=== PATIENT | female | born 1990 | race Caucasian/White ===

== ENCOUNTER 2023-10-26 14:08 | Emergency (ER) | payer BC, SELFPAY ==
[2023-10-26 14:13] VITALS: BP 128/76; PULSE 104; RESP 16; TEMP 37.1; O2SAT 98; BMI 39.1
--- NOTE | 2023-10-26 14:22 | DI.US.S_ITS ---
PROCEDURE: US PELVIC COMPLETE INDICATIONS: 6 weeks ega and bleeding TECHNIQUE: Real-time scanning was performed of the pelvic organs, with image documentation. Additional endovaginal scanning was necessary due to incomplete visualization of the adnexal and endometrial structures by transabdominal scanning. COMPARISON: None. FINDINGS: Uterus: Uterus is anteverted and normal in size at 9.0 x 7.0 x 5.4 cm. The myometrium is homogeneous. Heterogeneous echogenic material is seen throughout the endometrial canal without internal vascularity identified. No gestational sac is seen. Ovaries: The right ovary measures 3.3 x 2.6 x 2.8 cm, with a calculated ovarian volume of 12.6 cc. Simple 2.1 cm right ovarian cyst. The left ovary measures 3.8 x 2.7 x 2.4 cm, with a calculated ovarian volume of 12.9 cc. A simple cyst is seen in the left adnexa measuring 1.5 cm. Other: No pathologic free abdominal or pelvic fluid. IMPRESSION: of unknown location. No intrauterine or ectopic identified. Echogenic material within the endometrial canal without internal vascularity likely represents blood products although retained products of conception or gestational trophoblastic disease are not entirely excluded and clinical correlation and follow-up are recommended. Approved by: Bordie Whittaker M.D. on 10/26/2023 at 16:30
--- NOTE | 2023-10-26 14:45 | ED.GENADULT ---
HPI - General Adult General Chief complaint: Vaginal Bleeding Stated complaint: sent by OB, 6 weeks, thinks is having miscarriage Time Seen by Provider: 10/26/23 14:36 Source: patient Mode of arrival: Family Vehicle History of Present Illness HPI narrative: Patient is a 33-year-old at approximately 6 weeks EGA based on last menstrual cycle who is here for evaluation of vaginal bleeding that initially started as dark bleeding last evening and progressed now to bright red blood and lower abdominal cramping. No fevers. No trauma. No OB visits up to this point. Related Data Previous Rx's Medication Instructions Recorded nitrofurantoin 100 mg PO Q12H 5 days #10 caps 10/26/23 monohydrate/macrocrystals 100 mg capsule (Macrobid) Allergies Allergy/AdvReac Type Severity Reaction Status Date / Time No Known Drug Allergies Allergy Verified 10/26/23 16:18 Review of Systems Review of Systems Narrative: See HPI Exam Initial Vital Signs Initial Vital Signs: Vital Signs Temperature 98.7 F 10/26/23 14:13 Pulse Rate 104 H 10/26/23 14:13 Respiratory Rate 16 10/26/23 14:13 Blood Pressure 128/76 10/26/23 14:13 Pulse Oximetry 98 10/26/23 14:13 Oxygen Delivery Method Room Air 10/26/23 14:13 Const General: cooperative, comfortable and No ill appearing HENMT Head: normal to inspection and normocephalic Resp Effort & Inspection: normal respiratory effort Cardio Rate: regular rate GI Inspection: non-distended Skin General: no rashes or lesions noted Course Orders Ordered: ED Orders 10/26/23 14:22 US pelvic complete Stat 10/26/23 15:03 ABO RH Type Stat Basic Metabolic Panel Stat Complete Blood Count AUTO DIFF Stat HCG Quantitative /Beta subunit Stat 10/26/23 15:20 Test Urine Stat UA dip [Urinalysis Screen (Dip Only)] Stat Urine Culture Stat Urine Microscopic Stat Discontinued Medications Nitrofurantoin Macrocrystals (Nitrofurantoin Er 100 Mg Capsule) 100 mg PO NOW ONE Stop: 10/26/23 16:03 Last Admin: 10/26/23 16:17 Dose: 100 mg Documented By: DEVYN Rho Immune Globulin (Rho(D) Immune Globulin 1,500 Unit Syringe) 1,500 unit IM NOW ONE Stop: 10/26/23 16:03 Last Admin: 10/26/23 16:23 Dose: 1,500 unit Documented By: DEVYN Vital Signs Vital signs: Vital Signs - 8 hr 10/26/23 14:13 10/26/23 15:09 10/26/23 15:10 Temperature 98.7 F Pulse Rate 104 H 96 H 97 H Respiratory Rate 16 Blood Pressure 128/76 Pulse Oximetry 98 99 100 Oxygen Delivery Method Room Air Room Air 10/26/23 15:10 Temperature Pulse Rate Respiratory Rate Blood Pressure 130/68 Pulse Oximetry Oxygen Delivery Method Medical Decision Making Lab Data Lab results reviewed: Yes I reviewed the patient's lab results. 10/26/23 15:03 10/26/23 15:03 Labs: Lab Results 10/26/23 10/26/23 Range/Units 15:03 15:20 WBC 13.1 H (4.5-11.0) X10^3/uL RBC 4.86 (4.0-5.2) X10^6/uL Hgb 14.4 (12.0-16.0) g/dL Hct 42.4 (36-46) % MCV 87.1 (80-100) fL MCH 29.6 (26-34) PG MCHC 34.0 (30-36) % RDW 14.1 (11.6-14.8) % Plt Count 285 (150-400) X10^3/uL Neut % (Auto) 75.1 H (50-75) % Lymph % (Auto) 18.2 L (25-40) % [place] % (Auto) 5.3 (3-14) % Eos % (Auto) 1.0 L (2-4) % Baso % (Auto) 0.4 (0-2) % Neut # (Auto) 9900 H (0783-6918) /uL Lymph # (Auto) 2400 (5632-2568) /uL [place] # (Auto) 700 (0-900) /uL Eos # (Auto) 100 (0-450) /uL Baso # (Auto) 100 (0-100) /uL Sodium 139 (137-145) mmol/L Potassium 3.6 (3.4-5.1) mmol/L Chloride 104 (98-107) mmol/L Carbon Dioxide 25 (22-32) mmol/L BUN 12 (7-17) mg/dL Creatinine 0.83 (0.52-1.04) mg/dL Estimated GFR > 60 (>60) mL/min BUN/Creatinine Ratio 14.5 (6-22) Glucose 119 H (70-100) mg/dL Calcium 9.2 (8.4-10.2) mg/dL HCG, Quant 2307.5 mIU/mL Urine Color Red Urine Appearance Cloudy Urine pH 5.5 (4.5-8.0) Ur Specific [place] <=1.005 (1.000-1.035) Urine Protein 2+ H (Negative) Urine Glucose (UA) Negative (Negative) g/dL Urine Ketones Negative (NEGATIVE) Urine Occult Blood 3+ H (Negative) Urine Nitrate Positive H (Negative) Urine Bilirubin Negative (NEGATIVE) Urine Urobilinogen 0.2 (0.2) E.U./dL Ur Leukocyte Esterase Negative (NEGATIVE) Urine RBC >100/hpf H (0-5/HPF) Urine WBC 0-1/hpf (0-5/HPF) Ur Squamous Epith Cells 0-1 /hpf (0-5/HPF) Urine Bacteria Moderate (10-30) H (None) Ur Culture Indicated? Specimen cultured Vol Urine Centrifuged 10ml (spun) Urine Test Positive H (Negative) Blood Type O Negative Imaging Data US - OB: Radiologist's Impression: PROCEDURE: US PELVIC COMPLETE INDICATIONS: 6 weeks ega and bleeding TECHNIQUE: Real-time scanning was performed of the pelvic organs, with image documentation. Additional endovaginal scanning was necessary due to incomplete visualization of the adnexal and endometrial structures by transabdominal scanning. COMPARISON: None. FINDINGS: Uterus: Uterus is anteverted and normal in size at 9.0 x 7.0 x 5.4 cm. The myometrium is homogeneous. Heterogeneous echogenic material is seen throughout the endometrial canal without internal vascularity identified. No gestational sac is seen. Ovaries: The right ovary measures 3.3 x 2.6 x 2.8 cm, with a calculated ovarian volume of 12.6 cc. Simple 2.1 cm right ovarian cyst. The left ovary measures 3.8 x 2.7 x 2.4 cm, with a calculated ovarian volume of 12.9 cc. A simple cyst is seen in the left adnexa measuring 1.5 cm. Other: No pathologic free abdominal or pelvic fluid. IMPRESSION: of unknown location. No intrauterine or ectopic identified. Echogenic material within the endometrial canal without internal vascularity likely represents blood products although retained products of conception or gestational trophoblastic disease are not entirely excluded and clinical correlation and follow-up are recommended. MDM Narrative Medical decision making narrative: Patient does have bacteria in her urine in his nitrite positive. She was no specific UTI like symptoms however given her status we will treat her with antibiotics. First dose given here in the emergency department and a prescription for the remainder of the course was sent to the pharmacy of her choice. She was Rh negative. She did receive RhoGAM after her 1st . She was given a dose of RhoGAM here in the ER. Beta hCG is 2307. This is below the discriminatory threshold. No intrauterine was seen on the ultrasound. I had a discussion with the patient regarding this. She is minimal abdominal tenderness. She does have an OB provider that she was scheduled to see. Advised that she have a repeat beta-hCG level drawn in 48 hours from now. We discussed how she could for fell this. She was given specific return precautions. She expressed understanding and agreement. Discharge Plan Departure Patient Disposition: Home Clinical Impression: UTI (urinary tract infection), Threatened Instructions: Threatened Miscarriage, DI for Urinary Tract Infection (UTI) Activity Restrictions/Additional Instructions: Please take the antibiotics as directed. You Can take Tylenol for any discomfort. You do need a redraw of your hormone level in approximately 48 hours from now. This can either be done by your primary doctor, the walk-in clinic, and OB provider or returning here in the emergency department. Your hormone level today was 2301. Contact your OB provider for follow-up. Return to the emergency department for new symptoms. Prescriptions: New nitrofurantoin monohyd/m-cryst [Macrobid] 100 mg capsule 100 mg PO Q12H 5 Days Qty: 10 0RF Rx Instructions: must administer with a meal/food Referrals: Miscellaneous,Doctor MD [Primary Care Provider] - Stand Alone Forms: Patient Portal/API
[2023-10-26 15:09] VITALS: PULSE 96; O2SAT 99
[2023-10-26 15:10] VITALS: BP 130/68; PULSE 97; O2SAT 100
[2023-10-26 15:12] LABS: Add Manual Diff / Slide Review NO; Basophils Absolute Auto 100 /uL (0-100); Basophils Percent Auto 0.4 % (0-2); Eosinophils Absolute Auto 100 /uL (0-450); Hematocrit 42.4 % (36-46); Hemoglobin 14.4 g/dL (12.0-16.0); Lymphocytes Absolute Auto 2400 /uL (1100-4500); Lymphocytes Percent Auto 18.2 % (25-40); Mean Corpuscular Hemoglobin 29.6 PG (26-34); Mean Corpuscular Volume 87.1 fL (80-100); Monocytes Absolute Auto 700 /uL (0-900); Monocytes Percent Auto 5.3 % (3-14); Neutrophils Absolute Auto 9900 /uL (1500-7000); Neutrophils Percent Auto 75.1 % (50-75); Platelet Count 285 X10^3/uL (150-400); Red Blood Cell Count 4.86 X10^6/uL (4.0-5.2); Red Cell Distribution Width 14.1 % (11.6-14.8); White Blood Cell Count 13.1 X10^3/uL (4.5-11.0)
[2023-10-26 15:32] LABS: BUN Creatinine Ratio 14.5 (6-22); Blood Urea Nitrogen 12 mg/dL (7-17); Calcium 9.2 mg/dL (8.4-10.2); Carbon Dioxide 25 mmol/L (22-32); Chloride 104 mmol/L (98-107); Estimated Glomerular Filt Rate > 60 mL/min (>60); Glucose 119 mg/dL (70-100); HEMOLYSIS < 15 (0-50); Potassium 3.6 mmol/L (3.4-5.1); Sodium 139 mmol/L (137-145)
[2023-10-26 15:40] LABS: Bilirubin Urine UA NEGATIVE (NEGATIVE); Glucose Urine UA NEGATIVE (Negative); Ketones Urine UA NEGATIVE (NEGATIVE); Leukocyte Esterase Urine UA NEGATIVE (NEGATIVE); Nitrite Urine UA POSITIVE (Negative); Occult Blood Urine UA 3+ (Negative); Pregnancy Test Urine Positive (Negative); Protein Urine UA 2+ (Negative); Specific Gravity Urine UA <=1.005 (1.000-1.035); Urobilinogen Urine UA 0.2 E.U./dL (0.2)
[2023-10-26 15:44] LABS: pH Urine UA 5.5 (4.5-8.0)
[2023-10-26 15:45] LABS: Appearance Urine UA CLOUDY; Color Urine UA RED
[2023-10-26 15:46] LABS: Bacteria Urine Moderate (10-30); Culture Indicated Urine Specimen Cultured; RBC Urine >100/HPF (0-5/HPF); Squamous Epithelial Cell Urine 0-1 /HPF (0-5/HPF); Urine Volume 10mL (spun); WBC Urine 0-1/HPF (0-5/HPF)
[2023-10-26 15:49] LABS: HCG Quantitative /Beta subunit 2307.5 mIU/mL
[2023-10-26] MEDS: NITROFURANTOIN ER 100 MG CAPSULE PO (16:17)
[2023-10-26] MEDS: RHO(D) IMMUNE GLOBULIN 1,500 UNIT SYRINGE 1500 UNIT IM (16:23)
[2023-10-26 16:51] VITALS: BP 131/76; PULSE 86; RESP 16; TEMP 36.9; O2SAT 100
== END 2023-10-26 16:52 | disposition home or self-care (01) ==
PROVIDERS: Emergency Provider Emergency Medicine
DX: O23.41 Unspecified infection of urinary tract in pregnancy, first trimester (principal); O20.0 Threatened abortion; Z3A.01 Less than 8 weeks gestation of pregnancy
CPT/HCPCS: 36415; 76830; 76856; 80048; 81003; 81015; 81025; 84702; 85025; 86900; 86901; 87086; 96372; 99284; J2790

== ENCOUNTER 2024-12-26 09:11 | Emergency (ER) | payer BC, SELFPAY ==
[2024-12-26] VITALS (15 sets, daily range): BP systolic 92–134; BP diastolic 49–79; PULSE 67–82; RESP 12–20; TEMP 36.6–37.1; O2SAT 97–100; BMI 35.4
--- NOTE | 2024-12-26 09:55 | EKG_ITS ---
[address] [address] Test Date: 2024-12-26 Pat Name: Marcelle Srinivasan Department: Room: Gender: Female Complaint Clerk: JENNIE : 1990 Requested By: Order Number: [id number] Reading MD: Ross Marquez Measurements Intervals [place] Rate: 83 P: 1 MI: 148 QRS: 15 QRSD: 92 T: -16 QT: 356 QTc: 418 Interpretive Statements Normal sinus rhythm Nonspecific T wave abnormality Electronically Signed On 12-26-2024 13:48:53 PDT by Ross Marquez
--- NOTE | 2024-12-26 09:55 | DI.RAD.S_ITS ---
PROCEDURE: XR CHEST 1V INDICATIONS: Chest Pain TECHNIQUE: One view of the chest was acquired. COMPARISON: None. FINDINGS: Surgical changes and devices: None. Lungs and pleura: Lungs are clear. No pleural effusions or pneumothorax. Mediastinum: Mediastinal contours appear normal. Heart size is normal. Bones and chest wall: No suspicious bony lesions. Overlying soft tissues appear unremarkable. IMPRESSION: No acute cardiopulmonary abnormality is seen. Dictated by: Kodi iRvero M.D. on 12/26/2024 at 10:36 Approved by: Kodi Rivero M.D. on 12/26/2024 at 10:37
[2024-12-26 10:12] LABS: Add Manual Diff / Slide Review NO; Hematocrit 43.7 % (36-46); Hemoglobin 15.0 g/dL (12.0-16.0); Lymphocytes Absolute Auto 2000 /uL (1100-4500); Mean Corpuscular HGB Conc 34.3 % (30-36); Mean Corpuscular Hemoglobin 29.9 PG (26-34); Mean Corpuscular Volume 87.3 fL (80-100); Platelet Count 288 X10^3/uL (150-400)
[2024-12-26 10:22] LABS: INR 1.0 (0.9-1.3); Prothrombin Time 11.6 SECONDS (9.4-12.5)
[2024-12-26 10:25] LABS: PTT Partial Thromboplastin Tim 29 SECONDS (25.1-36.5)
[2024-12-26 10:27] LABS: Alanine Aminotransferase 20 IU/L (<35); Albumin 4.7 g/dL (3.5-5.0); Albumin Globulin Ratio 1.3 (1.0-2.8); Alkaline Phosphatase 87 U/L (38-126); Blood Urea Nitrogen 14 mg/dL (7-17); Calcium 10.0 mg/dL (8.4-10.2); Carbon Dioxide 24 mmol/L (22-32); Chloride 105 mmol/L (98-107); Creatine Kinase 55 U/L (30-135); Estimated Glomerular Filt Rate > 60 mL/min (>60); Globulin 3.6 g/dL (1.7-4.1); Glucose 96 mg/dL (70-99); HEMOLYSIS < 15 (0-50); Lipase 42 U/L (23-300); Magnesium 1.7 mg/dL (1.6-2.3); Potassium 4.2 mmol/L (3.4-5.1); Sodium 141 mmol/L (137-145); Total Protein 8.3 g/dL (6.3-8.2)
[2024-12-26 10:38] LABS: NT-proBNP (BNP-Adult 18+) 21 pg/mL (<125); Troponin I < 0.012 ng/mL (0.01-0.034)
--- NOTE | 2024-12-26 12:51 | ED.NEUROSD ---
HPI - Neuro Symptoms/Deficit General Chief Complaint: Neuro Symptoms/Deficit Stated Complaint: Dizziness, Vertigo an hour ago Time Seen by Provider: 12/26/24 12:36 Source: patient Mode of arrival: Ambulatory History of Present Illness HPI Narrative: Patient is a 34-year-old female history of PCOS presenting to day with dizziness. She reports that she was eating breakfast looking at her computer she works from home this is something normal for her when she suddenly got dizzy and had blurry vision. She did not get nauseous no numbness tingling or weakness. The whole episode lasted for about 15 minutes and then self resolved. No chest pain palpitations or shortness of breath. On Anticoagulants: No Related Data Previous Rx's ?Medication ?Instructions ?Recorded metformin 500 mg tablet 500 mg PO DAILY #90 tabs 01/12/24 semaglutide (weight loss) 1.7 1.7 mg (0.75 mL) SUBCUT QWEEK #3 mL //25 mg/0.75 mL subcutaneous pen injector Allergies Allergy/AdvReac Type Severity Reaction Status Date / Time No Known Drug Allergies Allergy Verified 12/26/24 09:47 Review of Systems Hematologic/Lymphatic On Anticoagulants: No Patient History Medical History Class 3 obesity Surgical History History of section (03/28/20) [place] teeth removed (04/20/09) H/O bone graft (09/18/09) Social History Smoking Status: Never smoker Smoking Status: Never smoker Exam Initial Vital Signs Initial Vital Signs: Vital Signs Temperature 98.6 F 12/26/24 09:45 Pulse Rate 81 12/26/24 09:45 Respiratory Rate 20 12/26/24 09:45 Blood Pressure 134/79 12/26/24 09:45 Pulse Oximetry 100 12/26/24 09:45 Oxygen Delivery Method Room Air 12/26/24 09:45 GENERAL: Alert pleasant 34-year-old and in no acute distress. HEENT: Head atraumatic,EOMI, pupils reactive, face symmetric, moist mucous membranes CARDIOVASCULAR: Regular rate and rhythm without murmurs, rubs or gallops. RESPIRATORY: Breath sounds equal bilaterally, no wheezes rales or rhonchi. ABDOMEN: Soft, nontender. Normoactive bowel sounds all 4 quadrants. No guarding or rebound. EXTREMITIES: Normal range of motion, no clubbing or edema. Neurovascularly intact NEUROLOGICAL: Alert and oriented x4.Normal gait and speech. Cranial nerves II through XII grossly intact. Good [id number], good [id number], strength equal bilaterally, no dysarthria or aphasia, sensation in tact to soft touch bilaterally, no visual changes, no facial droop SKIN: Warm, dry, no laceration, no petechiae, no rashes or lesions. Course Orders Ordered: ED Orders 12/26/24 09:55 XR chest 1V Stat EKG-12 Lead Stat 12/26/24 10:00 Complete Blood Count AUTO DIFF Stat Comprehensive Metabolic Panel Stat Lipase Stat Magnesium Stat NT-proBNP (BNP-Adult 18+) Stat PTT Partial Thromboplastin [place] Stat Prothrombin Time INR Stat Troponin & CK Cardiac Panel Stat Discontinued Medications Aspirin (Aspirin 81 Mg Chew Tab) 324 mg PO NOW ONE Stop: 12/26/24 09:56 Last Admin: 12/26/24 11:50 Dose: Not Given Documented By: CLP Sodium Chloride (Normal Saline 0.9%) 500 mls @ 1,000 mls/hr IV BOLUS STA Stop: 12/26/24 13:41 Last Admin: 12/26/24 13:23 Dose: Not Given Documented By: SB Sodium Chloride (Normal Saline 0.9%) 1,000 mls @ 1,000 mls/hr IV BOLUS STA Stop: 12/26/24 14:22 Last Infusion: 12/26/24 14:28 Dose: Infused Documented By: Admin: 12/26/24 13:24 Dose: 1,000 mls/hr Documented By: SB Vital Signs Vital signs: Vital Signs - 8 hr 12/26/24 09:45 12/26/24 11:38 12/26/24 12:00 Temperature 98.6 F 98.8 F Pulse Rate 81 82 75 Respiratory Rate 20 17 Blood Pressure 134/79 120/76 Pulse Oximetry 100 98 99 Oxygen Delivery Method Room Air Oxygen Flow Rate 0 12/26/24 12:00 12/26/24 12:30 12/26/24 12:30 Temperature Pulse Rate 75 Respiratory Rate Blood Pressure 104/58 L 101/57 L Pulse Oximetry 98 Oxygen Delivery Method Room Air Oxygen Flow Rate 12/26/24 12:42 12/26/24 12:42 12/26/24 12:45 Temperature Pulse Rate 79 69 Respiratory Rate Blood Pressure 100/57 L Pulse Oximetry 98 99 Oxygen Delivery Method Oxygen Flow Rate 12/26/24 12:45 12/26/24 13:00 12/26/24 13:00 Temperature Pulse Rate 72 Respiratory Rate 12 Blood Pressure 102/60 92/55 L Pulse Oximetry 98 Oxygen Delivery Method Room Air Oxygen Flow Rate 12/26/24 13:08 12/26/24 13:08 12/26/24 13:15 Temperature Pulse Rate 67 71 Respiratory Rate Blood Pressure 103/53 L Pulse Oximetry 100 98 Oxygen Delivery Method Room Air Oxygen Flow Rate 12/26/24 13:15 12/26/24 13:30 12/26/24 13:30 Temperature Pulse Rate 70 Respiratory Rate 14 Blood Pressure 93/51 L 99/57 L Pulse Oximetry 98 Oxygen Delivery Method Oxygen Flow Rate 12/26/24 13:45 12/26/24 13:45 12/26/24 14:00 Temperature Pulse Rate 67 Respiratory Rate 17 Blood Pressure 97/53 L 100/58 L Pulse Oximetry 97 Oxygen Delivery Method Oxygen Flow Rate 12/26/24 14:00 12/26/24 14:15 12/26/24 14:15 Temperature Pulse Rate 79 73 Respiratory Rate 19 Blood Pressure 95/49 L Pulse Oximetry 100 100 Oxygen Delivery Method Room Air Oxygen Flow Rate 12/26/24 14:24 12/26/24 14:24 12/26/24 14:30 Temperature 97.9 F Pulse Rate 81 82 Respiratory Rate 16 Blood Pressure 102/55 L Pulse Oximetry 100 Oxygen Delivery Method Room Air Oxygen Flow Rate MDM - Neuro Symptoms/Deficit Lab Data 12/26/24 10:00 12/26/24 10:00 Labs: Lab Results 12/26/24 Range/Units 10:00 WBC 10.5 (4.5-11.0) X10^3/uL RBC 5.00 (4.0-5.2) X10^6/uL Hgb 15.0 (12.0-16.0) g/dL Hct 43.7 (36-46) % MCV 87.3 (80-100) fL MCH 29.9 (26-34) PG MCHC 34.3 (30-36) % RDW 13.4 (11.6-14.8) % Plt Count 288 (150-400) X10^3/uL Neut % (Auto) 74.3 (50-75) % Lymph % (Auto) 18.8 L (25-40) % [place] % (Auto) 3.8 (3-14) % Eos % (Auto) 2.6 (2-4) % Baso % (Auto) 0.5 (0-2) % Neut # (Auto) 7800 H (9855-8533) /uL Lymph # (Auto) 2000 (8872-5095) /uL [place] # (Auto) 400 (0-900) /uL Eos # (Auto) 300 (0-450) /uL Baso # (Auto) 100 (0-100) /uL PT 11.6 (9.4-12.5) SECONDS INR 1.0 (0.9-1.3) APTT 29 (25.1-36.5) SECONDS Sodium 141 (137-145) mmol/L Potassium 4.2 (3.4-5.1) mmol/L Chloride 105 (98-107) mmol/L Carbon Dioxide 24 (22-32) mmol/L BUN 14 (7-17) mg/dL Creatinine 0.74 (0.52-1.04) mg/dL Estimated GFR > 60 (>60) mL/min BUN/Creatinine Ratio 18.9 (6-22) Glucose 96 (70-99) mg/dL Calcium 10.0 (8.4-10.2) mg/dL Magnesium 1.7 (1.6-2.3) mg/dL Total Bilirubin 0.9 (0.2-1.3) mg/dL AST 27 (14-36) IU/L ALT 20 (<35) IU/L Alkaline Phosphatase 87 (38-126) U/L Total Creatine Kinase 55 (30-135) U/L Troponin I < 0.012 (0.01-0.034) ng/mL NT-Pro-B Natriuret Pep 21 (<125) pg/mL Total Protein 8.3 H (6.3-8.2) g/dL Albumin 4.7 (3.5-5.0) g/dL Globulin 3.6 (1.7-4.1) g/dL Albumin/Globulin Ratio 1.3 (1.0-2.8) Lipase 42 (23-300) U/L Imaging Data Chest x-ray: Radiologist's Impression: PROCEDURE: XR CHEST 1V INDICATIONS: Chest Pain TECHNIQUE: One view of the chest was acquired. COMPARISON: None. FINDINGS: Surgical changes and devices: None. Lungs and pleura: Lungs are clear. No pleural effusions or pneumothorax. Mediastinum: Mediastinal contours appear normal. Heart size is normal. Bones and chest wall: No suspicious bony lesions. Overlying soft tissues appear unremarkable. IMPRESSION: No acute cardiopulmonary abnormality is seen. Dictated by: Kodi Rivero M.D. on 12/26/2024 at 10:36 Approved by: Kodi Rivero M.D. on 12/26/2024 at 10:37 ECG Data Attestation: I personally reviewed and interpreted this ECG as follows: Interpretation: Normal sinus rhythm rate 83 ID interval 148 QRS [address] changes no T-wave member MDM Narrative Medical decision making narrative: Patient is a healthy 34-year-old female presenting today with sudden onset of dizziness and blurry vision in both eyes. She had no numbness tingling weakness or stroke-like symptoms symptoms lasted for 15 minutes and have completely self resolve. She reports that she had maybe some double vision it did not matter which eye she covered up. She now feels back to her normal self Blood work has been reviewed CBC shows no leukocytosis or anemia CMP no electrolyte abnormality no BRIANA Troponin negative EKGs reviewed normal sinus rhythm Chest x-ray no acute cardiopulmonary process Patient had an episode of dizziness itself resolved. Possible brief episode of vertigo. No concern for CVA she does not have any other focal deficits. She has been in the ED now for a number of hours and symptoms have not returned. Blood pressure is noted to be slightly low she started to feel little dizzy she was then given a L of fluid blood pressure improved somewhat. Her blood pressure is about 120/80. She was given food she is feeling better she is not dizzy or lightheaded no blurry vision. At this time unsure why blood pressure dropped it maybe what happened to her earlier. However it quickly improved she has no focal deficits no need for any further workup or evaluation Discharge Plan Departure Patient Disposition: Home Clinical Impression: Vertigo Instructions: Benign Paroxysmal Positional Vertigo Activity Restrictions/Additional Instructions: *You have been diagnosed with dizziness *What to do: At this time blood work is overall reassuring EKGs reassuring. Please be sure to eat and drink regularly *Continue to take medications as directed *Follow up with your primary care provider in 2-3 days or call [phone] *Return to ER if you should have increasing dizziness nausea vomiting numbness tingling weakness chest pain passing or any new, worsening or concerning symptoms Prescriptions: No Action metformin 500 mg tablet 500 mg PO DAILY Qty: 90 3RF semaglutide (weight loss) 1.7 mg/0.75 mL pen injector 1.7 mg SUBCUT QWEEK Qty: 3 3RF Referrals: Pily Jimenez MD [Primary Care Provider, Family Practice] Stand Alone Forms: Patient Portal/API
--- NOTE | 2024-12-26 13:15 | PC.NURSE ---
Patient up for discharge. This RN checks on patient. She reports some lightheadedness/dizziness that began about 15 minutes ago. Provider Roger made aware and new verbal order for medication as per MAR.
[2024-12-26] MEDS: SODIUM CHLORIDE 0.9% 1,000 ML 1000 ML IV (13:24)
== END 2024-12-26 14:33 | disposition home or self-care (01) ==
PROVIDERS: Emergency Provider Emergency Medicine; PCP Student in an Organized Health Care Education/Training Program
DX: R42 Dizziness and giddiness (principal); H53.8 Other visual disturbances; R07.9 Chest pain, unspecified
CPT/HCPCS: 36415; 71045; 80053; 82550; 83690; 83735; 83880; 84484; 85025; 85610; 85730; 93005; 96360; 99284

== ENCOUNTER → 2025-01-09 14:12 | Outpatient (CLI) | payer BC, SELFPAY ==
--- NOTE | 2025-01-09 14:13 | DI.US.S_ITS ---
PROCEDURE: US EXTREMITY NONVASC LOWER RT INDICATIONS: mass on right thigh TECHNIQUE: Real-time scanning was performed of the right thigh , with image documentation. COMPARISON: None. FINDINGS: In the area of concern of the right lateral thigh, is a lobule of fat which is isoechoic to the adjacent subcutaneous fat, this measures 1.8 x 1 x 1.2 cm. No increased soft tissue nodularity or vascularity on color Doppler imaging. Additional focus in the right posterior thigh subcutaneous fat is isoechoic to the adjacent subcutaneous fat and measures 1.2 x 0.6 x 1.8 cm. No soft tissue nodularity or increased vascularity on color Doppler. IMPRESSION: Right lateral and posterior thigh non encapsulated likely lipomas which are isoechoic to the adjacent subcutaneous fat. Dictated by: Tony Frazier M.D. on 01/09/2025 at 15:55 Approved by: Tony Frazier M.D. on 01/09/2025 at 15:57
== END ==
LOC: US 14:12
PROVIDERS: PCP Student in an Organized Health Care Education/Training Program; Referring Provider Student in an Organized Health Care Education/Training Program; Visit Provider Student in an Organized Health Care Education/Training Program
DX: R22.41 Localized swelling, mass and lump, right lower limb (principal)
CPT/HCPCS: 76882

== ENCOUNTER → 2025-03-14 12:00 | Outpatient (CLI) | payer BC, SELFPAY ==
--- NOTE | 2025-03-14 12:01 | DI.US.S_ITS ---
MM diagnostic mammo BI, US breast LT limited: 03/14/2025 BI-RADS: 1 CLINICAL: 34-year old female for bilateral diagnostic mammogram and left diagnostic breast ultrasound. Tyrer-Cuzick lifetime risk of 17.5%. No personal or first- degree family history of breast cancer. Current reported family history of breast cancer: maternal grandmother. The patient reports pain (more than 2 years) in the left breast. PRIOR EXAMS: None. This is a baseline mammogram. MAMMOGRAPHY TECHNIQUE: 2D and 3D (tomosynthesis) digital mammographic views obtained, with additional images as needed for full coverage. Current study was also evaluated with a Computer Aided Detection (CAD) system. ULTRASOUND TECHNIQUE TARGETED Left Breast Ultrasound: Real-time ultrasound exam was performed focused to area of clinical and/or imaging concern. Real-time grullon scale and color doppler imaging of the area of clinical interest was performed with image documentation. DENSITY B. There are scattered areas of fibroglandular density. MAMMOGRAPHY FINDINGS Right: No suspicious mass, asymmetry, microcalcification, or other abnormality seen. Left (finding-1): Outer at 3:00, Middle depth: A skin marker was placed in the area of concern, and no mammographic abnormalities are identified or to account for concern by the patient of pain/tenderness. No suspicious mass, asymmetry, microcalcification, or other abnormality seen. ULTRASOUND FINDINGS Left (finding-1): Outer at 3:00, 7 cm from nipple: Underlying the surface marker, there is no sonographic abnormality to account for concern by the patient of pain/tenderness. IMPRESSION: * No evidence of malignancy. RECOMMENDATIONS Left * Clinical follow-up is recommended, and further management of palpable abnormalities or other focal signs or symptoms should be based on the results of clinical evaluation. If palpable abnormality or other concerning symptom persists or progresses, further clinical evaluation should be considered. Bilateral * Annual screening mammography beginning at age 40. COMMENTS: Findings and recommendations were conveyed to the patient during today's evaluation. OVERALL ASSESSMENT CATEGORY BI-RADS-1: Negative. The [employer] recommends annual screening mammography beginning at age 40 for women with average risk of breast cancer. ELECTRONICALLY SIGNED: Graciela Daniels M.D. on 03/14/2025 at 04:17:33 PM PT Interpreting Station ID: [id number]
== END ==
LOC: MAMMO 12:01
PROVIDERS: PCP Student in an Organized Health Care Education/Training Program; Referring Provider Family Medicine; Visit Provider Family Medicine
DX: N64.4 Mastodynia (principal); Z80.3 Family history of malignant neoplasm of breast
CPT/HCPCS: 76642; 77066; G0279